=== PATIENT | male | born 2000 | race Caucasian/White ===

== ENCOUNTER 2023-08-31 07:57 | Emergency (ER) | payer OTHER, SELFPAY ==
--- NOTE | ~2023-08-31 | CT_ITS ---
EXAMINATION: CT abdomen pelvis w con DATE: 08/31/2023 08:33 INDICATION: Abscess. TECHNIQUE: Computed tomography (CT) of the abdomen and pelvis was performed with 100 mL Omnipaque 350 intravenous contrast. Automated exposure control and iterative reconstruction technique were employe d. The dose-length product was 309.57 mGy-cm. COMPARISON: None. FINDINGS: The visualized portions of the lung bases are clear without pneumonia or pleural effusion. The heart size is normal. No pericardial effusion. The liver, gallbladder, spleen, pancreas, adrenal glands, and right kidney are normal. There is mild focal volume loss of left kidney. There are no dil ated loops of bowel. The appendix is normal. There are no pathologically enlarged lymph nodes. There is no free intraperitoneal fluid. In the perineum, there is a 19 x 8 x 14 mm subcutaneous abscess. Th e bones are unremarkable. IMPRESSION: 1. 19 x 8 x 14 mm subcutaneous abscess in the perineum. Reviewed, dictated and finalized at location A.
[2023-08-31 07:59] VITALS: BP 150/89; PULSE 103; RESP 16; TEMP 36.2; O2SAT 99
[2023-08-31 08:23] LABS: Basophils Absolute Auto 0.1 K/mm3 (0.0-0.1); Basophils Percent Auto 0.3 % (0.2-1.2); Eosinophils Absolute Auto 0.5 K/mm3 (0-0.3); Eosinophils Percent Auto 2.8 % (0-4.4); Hematocrit 44.1 % (42.0-52.0); Hemoglobin 15.5 g/dL (14.0-18.0); Immature Granulocyte Absolute 0.05 K/mm3 (0.00-0.031); Immature Granulocyte Percent A 0.3 % (0-0.5); Lymphocytes Absolute Auto 3.75 K/mm3 (0.9-3.2); Mean Corpuscular HGB Conc 35.1 g/dl (32-36); Mean Corpuscular Hemoglobin 30.7 pg (26-34); Mean Corpuscular Volume 87.3 fl (80-100); Monocytes Absolute Auto 1.5 K/mm3 (0.1-0.6); Monocytes Percent Auto 9.4 % (2.6-8.5); Neutrophils Absolute Auto 10.5 K/mm3 (1.3-6.7); Neutrophils Percent Auto 64.2 % (45.5-73.1); Platelet Count Result 236 k/mm3 (150-375); Red Blood Count 5.05 M/mm3 (4.6-6.20); Red Cell Distribution Width 12.1 % (11.5-14.5); White Blood Count 16.3 K/mm3 (4.5-10.0)
[2023-08-31 08:26] LABS: Estimated CRCL calculation 80 ml/min; Estimated Glomerular Filt Rate > 60
[2023-08-31 08:30] LABS: Alanine Aminotransferase 19 U/L (6-50); Albumin Level 4.9 g/dL (3.5-5.1); Alkaline Phosphatase 98 U/L (38-126); Anion Gap 8 mmol/L (4-12); Aspartate Amino Transferase 29 U/L (17-59); Bilirubin,Total 0.6 mg/dL (0.2-1.3); Blood Urea Nitrogen 14 mg/dL (9-20); Calcium 9.4 mg/dL (8.4-10.2); Carbon Dioxide 26 mmol/L (22-30); Chloride 104 mmol/L (98-107); Estimated CRCL calculation 95 ml/min; Estimated Glomerular Filt Rate > 60; Glucose 129 mg/dL (65-110); Potassium 3.8 mmol/L (3.4-5.0); Sodium 138 mmol/L (137-145)
[2023-08-31] MEDS: CLINDAMYCIN 900 MG/D5W 50 ML 900 MG/50 ML PIGGYBACK 50 MG IVPB (09:49)
--- NOTE | 2023-08-31 11:42 | ED.GENADULT ---
[facility] - General Adult General Chief complaint: Wound/Laceration Stated complaint: wound Time Seen by Provider: 08/31/23 08:01 Source: patient Mode of arrival: ambulatory Limitations: no limitations History of Present Illness HPI narrative: 23-year-old otherwise healthy here with a complaint of pain and swelling in the right groin for past few days. He denies any trauma. No history of fever or chills. Onset (ago): day(s) (2) Location: pelvis Severity: moderate Quality: aching Pain Consistency: constant Relieving factors: none Exacerbating factors: none Associated symptoms: denies other symptoms Related Data Allergies Allergy/AdvReac Type Severity Reaction Status Date / Time No Known Allergies Allergy Verified 08/31/23 08:15 Review of Systems Review of Systems: All systems reviewed & are unremarkable except as noted in HPI and below Constitutional: Constitutional: Reports no additional constitutional complaints Eyes: Eyes: Reports no additional eye complaints ENT: Reports system reviewed and no additional complaints, except as documented Cardiovascular: Cardiovascular: Reports no additional cardiovascular complaints Respiratory: Respiratory: Reports no additional respiratory complaints Gastrointestinal: Gastrointestinal: Reports no additional gastrointestinal complaints Musculoskeletal: Musculoskeletal: Reports no additional musculoskeletal complaints Integumentary/Breasts: Skin/Breast: Reports as per HPI Neurologic: Reports system reviewed and no additional complaints, except as documented Exam Narrative: GENERAL: Well-appearing, well-nourished, and in no acute distress. HEAD: Normocephalic, atraumatic. EYES: PERRLA and EOMI. ENT: Nares clear, no rhinorrhea or epistaxis. Mucous membranes moist. NECK: Supple. CHEST: Clear to auscultation. No respiratory distress. HEART: Regular rate and rhythm. No murmur heard. Normal peripheral pulses. ABDOMEN: Soft, nontender, nondistended, normal active bowel sounds. EXTREMITIES: Normal range of motion. No edema. SKIN: Warm, dry, no rash.has a small abscess in the right groin NEURO: No focal deficits. Alert and oriented x3. PSYCH: Normal mood and affect. Course Course Emergency Course: Informed patient about the lab work, CT findings. He declined admission. I discussed with Dr. Smith he will follow up in office. Patient lives in [place] he is scheduled to leave tomorrow. Advised him to take antibiotic as prescribed. Vital Signs Vital signs: Vital Signs Temperature 36.2 C L 08/31/23 07:59 Pulse Rate 103 H 08/31/23 07:59 Respiratory Rate 16 08/31/23 07:59 Blood Pressure 150/89 H 08/31/23 07:59 Pulse Oximetry 99 08/31/23 07:59 Temperature 36.2 C L 08/31/23 07:59 Pulse Rate 103 H 08/31/23 07:59 Respiratory Rate 16 08/31/23 07:59 Blood Pressure 150/89 H 08/31/23 07:59 Pulse Oximetry 99 08/31/23 07:59 Procedures Abscess I/D other: Date of Incision: 08/31/23 Time of Incision: 11:00 Side (if applicable): right Local Anesthetic: lidocaine 1% Amount of anesthesia used (mL): 2 Technique: incised with #11 blade Amount of fluid expressed (mL): 10 Irrigation: No Packing used?: plain I&D Results: Pus Abcess I&D Additional Comments: Right groin Medical Decision Making Vital Signs Vital Signs: Vital Signs Temperature 36.2 C L 08/31/23 07:59 Pulse Rate 103 H 08/31/23 07:59 Respiratory Rate 16 08/31/23 07:59 Blood Pressure 150/89 H 08/31/23 07:59 Pulse Oximetry 99 08/31/23 07:59 Temperature 36.2 C L 08/31/23 07:59 Pulse Rate 103 H 08/31/23 07:59 Respiratory Rate 16 08/31/23 07:59 Blood Pressure 150/89 H 08/31/23 07:59 Pulse Oximetry 99 08/31/23 07:59 Lab Data 08/31/23 08:12 08/31/23 08:25 Labs: Lab Results 08/31/23 08/31/23 Range/Units 08:12 08:25 WBC 16.3 H (4.5-10.0
== END 2023-08-31 12:01 | disposition home or self-care (01) ==
PROVIDERS: Emergency Provider Family Medicine
DX: L02.214 Cutaneous abscess of groin (principal)
CPT/HCPCS: 10061; 36415; 74177; 80053; 85025; 87070; 87147; 87181; 87205; 96365; 99284; Q9967